=== PATIENT | male | born 1955 | race Caucasian/White ===

== ENCOUNTER 2022-07-06 04:58 | Inpatient (IN) | payer MEDICARE ==
[~2022-07-06] VITALS: Ht 180.3 cm; Wt 68.5 kg
[2022-07-06] MEDS ORDERED: SYNTHROID0.125 MG/T PO (05:18)
[2022-07-06] MEDS ORDERED: ALBUTEROL S0.4 MG/ML PO (05:18)
[2022-07-06] MEDS ORDERED: VOGELXO (05:18)
[2022-07-06 05:21] LABS: BASO # 0.1 K/mm3 (0.0-0.2); BASO % 0.3 % (0.0-2.0); GRAN # 11.1 K/mm3 (1.4-6.5); GRAN % 76.9 % (42.2-75.2); LYMPH # 1.6 K/mm3 (1.2-3.4); LYMPH % 11.2 % (20.0-51.0); MEAN CELL VOLUME 87 fl (80.0-100.0); MEAN CORPUSCULAR HGB CONC 34 g/dl (33.0-37.0); MEAN PLATELET VOLUME 10.1 fl (7.4-10.4); MONO # 1.6 K/mm3 (0.1-0.6); PLATELET COUNT 372 K/mm3 (130-400); RED BLOOD COUNT 6.18 M/mm3 (4.20-5.60); REDCELL DISTRIBUTION WIDTH-CV 15.2 % (11.5-14.5)
[2022-07-06 05:22] LABS: HEMOGLOBIN 18.6 g/dl (13.5-18.0); MEAN CORPUSCULAR HEMOGLOBIN 30 pg (27-31)
[2022-07-06 05:42] LABS: ALBUMIN 4.6 gm/dL (3.4-4.8); BILIRUBIN,TOTAL 1.3 mg/dL (0.2-1.2); C-REACTIVE PROTEIN 6.88 mg/dL (0.00-0.50); CALCIUM 10.5 mg/dL (8.4-10.2); CREATININE, serum 5.28 mg/dL (0.72-1.25); MAGNESIUM 2.2 mg/dL (1.6-2.6); PHOSPHOROUS 4.8 mg/dL (2.3-4.7); POTASSIUM 4.6 mmol/L (3.5-4.5); TOTAL PROTEIN 9.7 gm/dL (6.2-8.1)
[2022-07-06 06:02] LABS: TSH w REFLEX 6.111 uIU/mL (0.350-4.940)
[2022-07-06] MEDS ORDERED: ACCOLATE10 MG PO (08:39)
[2022-07-06] MEDS ORDERED: 00186-0370-20 IH (08:46)
[2022-07-06 09:29] VITALS: BP 118/70; PULSE 77; TEMP 97.8
[2022-07-06] MEDS ORDERED: ZYLOPRIM 300MG300 MG PO (10:51)
--- NOTE | 2022-07-06 11:05 | NUR ---
PT SITTING UP IN BED UPON ENTERING ROOM, AT BEDSIDE. ADMISSION INTAKE AND ASSESSMENT COMPLETED, MED REC UPDATED. PT REPORTS MILD ABDOMINAL PAIN AT THIS TIME. IVF INFUSING. CALL LIGHT WITHIN REACH, PT ORIENTED TO ROOM. WILL CONTINUE TO MONITOR.
[2022-07-06 15:32] LABS: CALCIUM 9.1 mg/dL (8.4-10.2); CREATININE, serum 4.53 mg/dL (0.72-1.25); POTASSIUM 3.9 mmol/L (3.5-4.5)
[2022-07-06 15:55] LABS: THYROID STIMULATING HORMONE 2.812 uIU/mL (0.350-4.940)
[2022-07-06 16:08] VITALS: BP 108/66; PULSE 75; TEMP 97.8
[2022-07-06 19:36] LABS: COLLECTION METHOD CLEAN CATCH
[2022-07-06 19:43] LABS: PH 5.5 (5.0-8.5); URINE APPEARANCE Clear (CLEAR/HAZY); URINE BLOOD 2+ (NEGATIVE); URINE COLOR Amber (YELLOW); URINE GLUCOSE Negative (NEGATIVE); URINE KETONE Negative (NEGATIVE); URINE NITRATE Negative (NEGATIVE); URINE PROTEIN(semi-quant) 2+ (NEGATIVE); URINE UROBILINOGEN 0.2 E.U/dL (0.2-1.0)
[2022-07-06 19:48] VITALS: BP 135/78; PULSE 78; TEMP 98.3
[2022-07-06 20:23] LABS: MUCOUS Present (NOT PRESENT); SQUAMOUS EPITHELIAL 0-2 /hpf (0-10); URINE BACTERIA None Seen /hpf (NONE SEEN)
[2022-07-06 21:24] LABS: CREATININE, serum 4.04 mg/dL (0.72-1.25); SODIUM 131 mmol/L (136-145)
[2022-07-06 23:32] VITALS: BP 111/66; PULSE 73; TEMP 97.9
--- NOTE | 2022-07-07 02:15 | NUR ---
NURSING SHIFT ASSESSMENT COMPLETED. THE PATIENT DENIED PAIN OR DISCOMFORT. THE PATIENT REQUESTED A FEW MORE BRIEFS AND CHUX PADS FOR THE NIGHT. BOTH WERE PROVIDED. THE PLAN OF CARE AND EVENING MEDICATIONS WERE DISCUSSED. THE PATIENT IS UP INDEPENDENTLY IN THE ROOM WITHOUT DIFFICULTY. WILL MONITOR.
[2022-07-07 03:19] VITALS: BP 115/65; PULSE 66; TEMP 97.6
[2022-07-07 07:05] LABS: HEMATOCRIT 40.4 % (42.0-52.0); MEAN CELL VOLUME 89 fl (80.0-100.0); MEAN CORPUSCULAR HGB CONC 35 g/dl (33.0-37.0); MEAN PLATELET VOLUME 10.7 fl (7.4-10.4); RED BLOOD COUNT 4.56 M/mm3 (4.20-5.60); REDCELL DISTRIBUTION WIDTH-CV 14.8 % (11.5-14.5)
[2022-07-07 07:06] LABS: HEMOGLOBIN 14.2 g/dl (13.5-18.0); MEAN CORPUSCULAR HEMOGLOBIN 31 pg (27-31); PLATELET COUNT 245 K/mm3 (130-400)
[2022-07-07 07:07] VITALS: BP 123/73; PULSE 63; TEMP 97.5
[2022-07-07 07:13] LABS: ALBUMIN 3.1 gm/dL (3.4-4.8); CALCIUM 8.3 mg/dL (8.4-10.2); CREATININE, serum 3.15 mg/dL (0.72-1.25); MAGNESIUM 2.1 mg/dL (1.6-2.6); PHOSPHOROUS 3.2 mg/dL (2.3-4.7); POTASSIUM 3.9 mmol/L (3.5-4.5)
[2022-07-07 08:24] LABS: BAND 1 % (0-10); LYMPHOCYTE 20 % (20.0-51.0); NEUTROPHILS 64 % (42.0-75.2); PLATELET ESTIMATE NORMAL (NORMAL)
[2022-07-07 11:28] VITALS: BP 120/69; PULSE 67; TEMP 98.2
--- NOTE | 2022-07-07 12:41 | NUR ---
PER PATIENT HE HAS HAD 3 LIQUID BM TODAY, HOWEVER PATIENT CLAIMS HIS NORMAL IS 12-15 BOWEL MOVEMENTS PER DAY D/T HIS COLECTOMY AND "J POUCH" LUCÍA "TOO SHORT."
--- NOTE | 2022-07-07 15:48 | NUR ---
SW called patient in his room to complete intake. Patient states taht he lives in [facility] with his Sonja Mary [phone]. Patient states he does not utilize DME, is independent with ADLs, and does not utilizes HH services at this time. PCP is Dr. Danielle, and pharmacy is [facility] Patient states that his spouse has been appointed as his DPOA/HC. Patient states that his plan is to return to his home [place]. SW will continue to follow. [place] plan: home
[2022-07-07 16:24] VITALS: BP 135/72; PULSE 68; TEMP 97.4
[2022-07-07 19:28] VITALS: BP 132/67; PULSE 69; TEMP 97.4
[2022-07-07 23:55] VITALS: BP 102/81; PULSE 66; TEMP 99
[2022-07-08 04:38] VITALS: BP 125/69; PULSE 72; TEMP 97.7
--- NOTE | 2022-07-08 06:26 | NUR ---
Patient care, medication administration and nursing documentation occurred during a Daylight Savings Time Change.
[2022-07-08 06:49] LABS: BASO % 0.4 % (0.0-2.0); EOS # 0.1 K/mm3 (0.0-0.7); EOS % 1.4 % (0.0-4.0); GRAN # 4.5 K/mm3 (1.4-6.5); HEMATOCRIT 40.3 % (42.0-52.0); HEMOGLOBIN 13.8 g/dl (13.5-18.0); LYMPH % 25.7 % (20.0-51.0); MEAN CELL VOLUME 89 fl (80.0-100.0); MEAN CORPUSCULAR HEMOGLOBIN 31 pg (27-31); MEAN CORPUSCULAR HGB CONC 34 g/dl (33.0-37.0); MEAN PLATELET VOLUME 10.3 fl (7.4-10.4); MONO # 1.1 K/mm3 (0.1-0.6); MONO % 14.5 % (1.7-9.3); PLATELET COUNT 284 K/mm3 (130-400); RED BLOOD COUNT 4.52 M/mm3 (4.20-5.60); REDCELL DISTRIBUTION WIDTH-CV 14.9 % (11.5-14.5)
[2022-07-08 07:19] LABS: ALBUMIN 3.2 gm/dL (3.4-4.8); CALCIUM 8.5 mg/dL (8.4-10.2); CREATININE, serum 1.84 mg/dL (0.72-1.25); MAGNESIUM 1.9 mg/dL (1.6-2.6); PHOSPHOROUS 2.8 mg/dL (2.3-4.7); POTASSIUM 3.8 mmol/L (3.5-4.5)
--- NOTE | 2022-07-08 07:33 | NUR ---
UPON TRYING TO GIVE THE PATIENT HIS 2100 SCHEDULED MEDICATIONS THE PATIENT STATED THAT HE HAD BEEN TAKING HIS OWN HOME MEDICATIONS. ALLOPURINOL WAS ONE OF THOSE MEDICATIONS. THE PATIENT WAS EDUCATED ON THE HOSPITALS POLICY REGARDING PTS HOME MEDICATIONS AT BEDSIDE AND THAT HE SHOULD STOP TAKING HIS OWN. THE PATIENT VERBALIZED UNDERSTANDING AND STATED THAT HE WOULD STOP TAKING HIS OWN MEDS FROM HOME. THE PATIENT WAS ALSO EDUCATED REGARDING THE FACT THAT THE RECOMMENDATION FROM THE DOCTOR WAS NOT TO BE TAKING THE ALLOPURINOL D/T THE FACT THAT IT CAN AFFECT KIDNEY FUNCTION. THE PATIENT VERBALIZED UNDERSTANDING. THE MEDICATIONS REMAINED AT BEDSIDE, HOWEVER THE PATIENT STATED HE WOULD NO LONGER TAKE THEM BUT RATHER SEND THEM HOME IN THE MORNING.
[2022-07-08 08:27] VITALS: BP 125/66; PULSE 64; TEMP 98.3
--- NOTE | 2022-07-08 08:33 | NUR ---
NURSING SHIFT ASSESSMENT COMPLETED. THE PATIENT DENIED PAIN OVERNIGHT. THE PATIENT TOLERATED JELLO AND ICE CREAM. NO OTHER NEEDS. IVF CONTINUE. WILL MONITOR.
[2022-07-08] MEDS ORDERED: ANTI-DIARRHEAL2 MG PO (10:36)
--- NOTE | 2022-07-08 12:30 | NUR ---
PATIENT IV AND TELE DISCONTINUED, DISCHARGE INSTRUCTIONS AND EDUCATION GIVEN. PATIENT VERBALIZES UNDERSTANDING THAT HE IS TO CALL FOR PCP FOLLOW UP APT TOMORROW AND CALL [facility] BY SATURDAY FOR A 1-2 WEEK FOLLOW UP APT.
--- NOTE | 2022-07-08 12:45 | NUR ---
PATIENT TAKEN TO ER ENTRANCE VIA WHEEL CHAIR AND LEFT IN STABLE CONDITON WITH HIS .
[2022-07-09 08:15] LABS: PATHOLOGY DIFF REVIEW OK
== END 2022-07-08 12:45 | disposition home or self-care (01) | DRG 683 ==
LOC: COL.ER 04:58 → MEDICAL 08:10
PROVIDERS: Emergency Medicine; Registered Nurse; ADMIT Internal Medicine
DX: N17.9 Acute kidney failure, unspecified (principal); A08.11 Acute gastroenteropathy due to Norwalk agent; E87.1 Hypo-osmolality and hyponatremia; E87.20 Acidosis, unspecified; K51.90 Ulcerative colitis, unspecified, without complications; A09 Infectious gastroenteritis and colitis, unspecified; E86.0 Dehydration; J44.9 Chronic obstructive pulmonary disease, unspecified; D72.829 Elevated white blood cell count, unspecified; D75.1 Secondary polycythemia; M10.9 Gout, unspecified; E03.9 Hypothyroidism, unspecified; E86.1 Hypovolemia; Z90.49 Acquired absence of other specified parts of digestive tract; Z79.890 Hormone replacement therapy
CPT/HCPCS: OP; J7030; J7120

== ENCOUNTER 2023-07-04 13:08 | Day surgery (SDC) | payer MEDICARE ==
[~2023-07-04] VITALS: Ht 180.3 cm; Wt 77.7 kg
[~2023-07-04 13:08] MED LIST: 00186-0370-20 IH; ACCOLATE10 MG PO; ALBUTEROL S0.4 MG/ML PO; ANTI-DIARRHEAL2 MG PO; LR 1,000 ML IV SCH; Ondansetron 4 MG/2 ML VIAL IV PRN; SYNTHROID0.125 MG/T PO; VOGELXO; ZYLOPRIM 300MG300 MG PO
[2023-07-04] MEDS ORDERED: Lidocaine PF 2% (20 MG/ML) 5 ML VIAL ONE (14:20)
[2023-07-04 14:45] VITALS: BP 106/70; PULSE 64; TEMP 98.4
[2023-07-04 15:00] VITALS: BP 106/70; PULSE 61
[2023-07-04 15:15] VITALS: BP 121/80; PULSE 63
[2023-07-04 15:30] VITALS: BP 114/74; PULSE 66
[2023-07-04] MEDS ORDERED: VITAMIN C500 MG PO (15:56)
[2023-07-04] MEDS ORDERED: SINGULAIR 110 MG/TAB PO (15:57)
[2023-07-04] MEDS ORDERED: PROZAC 20MG20 MG PO (15:58)
[2023-07-04 16:04] VITALS: BP 129/86; PULSE 67; TEMP 97.4
--- NOTE | 2023-07-04 17:03 | NUR ---
1445: PATIENT TO BAY 2 FROM ENDO SUITE. ALERT AND ORIENTED. AMBULATED X2 ASSIST FROM COT TO RECLINER. VSS. BREATHING EVEN AND UNLABORED. DENIES PAIN OR NAUSEA. REQUESTING MUFFIN, CHEESE AND JUICE. WARM BLANKET PROVIDED. NO FURTHER NEEDS NOTED. RESTING IN RECLINER. CALL LIGHT IN REACH. AT BEDSIDE. 1500: ALERT AND ORIENTED. VSS. BREATHING EVEN AND UNLABORED. TOLERATING FOOD AND DRINK. DENIES PAIN OR NAUSEA. NO FURTHER NEEDS NOTED. RESTING IN RECLINER. CALL LIGHT IN REACH. AT BEDSIDE. 1515: ALERT AND ORIENTED. VSS. BREATHING EVEN AND UNLABORED. DENIES PAIN OR NAUSEA. NO FURTHER NEEDS NOTED. RESTING IN RECLINER. CALL LIGHT IN REACH. AT BEDSIDE. 1530: ALERT AND ORIENTED. VSS. BREATHING EVEN AND UNLABORED. DENIES PAIN OR NAUSEA. NO FURTHER NEEDS NOTED. RESTING IN RECLINER. CALL LIGHT IN REACH. AT BEDSIDE. 1540: DR. NÚÑEZ IN TO SPEAK WITH PATIENT. DISCHARGE EDUCATION COMPLETED AT THIS TIME. PATIENT STATED UNDERSTANDING. DISCHARGE PAPERWORK GIVEN TO PATIENT. IV DC'D AT THIS TIME. PATIENT DENIES ANY ASSISTANCE WITH DRESSING. 1550: PATIENT OFF UNIT PER WHEELCHAIR AT THIS TIME. PATIENT DISCHARGED TO HOME WITH , DELON, PER PERSONAL VEHICLE.
== END 2023-07-04 15:50 | disposition home or self-care (01) ==
LOC: SDCO 13:08
DX: K51.019 Ulcerative (chronic) pancolitis with unspecified complications (principal); K91.850 Pouchitis
CPT/HCPCS: J2704; J7120